=== PATIENT | male | born 1980 | race Caucasian/White ===

== ENCOUNTER 2016-09-08 17:56 | Emergency (ER) | payer OTHER ==
[~2016-09-08 17:56] MED LIST: LORTAB 5-325 M1 EACH PO; NO MEDICATIONS; NORCO1 TAB 10/3 PO; VOLTAREN75 MG PO
== END 2016-09-08 18:58 | disposition home or self-care (01) ==
LOC: SED 17:56
DX: S61.211A Laceration without foreign body of left index finger without damage to nail, initial encounter (principal); Z23 Encounter for immunization; W45.8XXA Other foreign body or object entering through skin, initial encounter
CPT/HCPCS: 12001; 90471; 90715; 99283

== ENCOUNTER 2016-10-10 14:52 | Emergency (ER) | payer OTHER | END 2016-10-10 16:58 | disposition home or self-care (01) | LOC: SED 14:52 | DX: S30.860A Insect bite (nonvenomous) of lower back and pelvis, initial encounter (principal); J06.9 Acute upper respiratory infection, unspecified; F17.210 Nicotine dependence, cigarettes, uncomplicated; W57.XXXA Bitten or stung by nonvenomous insect and other nonvenomous arthropods, initial encounter; Y92.9 Unspecified place or not applicable | CPT/HCPCS: 86617; 99283 ==